=== PATIENT | female | born 1940 | race Caucasian/White ===

== ENCOUNTER 2019-09-15 17:04 | Emergency (ER) | payer OTHER ==
[2019-09-15 17:11] VITALS: BP 142/76; PULSE 79; TEMP 97; BMI 21.9
--- NOTE | 2019-09-15 17:13 | PDOC ---
Rapid Medical Evaluation Chief Complaint: Nausea Time Seen by Provider: 09/15/19 17:06 Medical Evaluation: 09/15/19 17:08 I have performed a brief in-person evaluation of this patient. The patient presents with a chief complaint of: Here for worsening anxiety and also reports nausea. On klonopin QID but finds herself taking more frequent doses due to 'everything going on". No SI or HI and states "I'm afraid of dying". F/u with [facility], Natasha Villanueva Pertinent physical exam findings:appears anxious, stable I have ordered the following:ekg/labs The patient will proceed to the ED for further evaluation. Discharge Disposition - Diagnosis Anxiety - Referrals - Patient Instructions - Post Discharge Activity
[2019-09-15 18:50] LABS: BASO % 0.6 % (0-2.0); EOS % 3.4 % (0-4.5); HEMATOCRIT 42.7 % (32.4-45.2); HEMOGLOBIN 14.3 GM/dL (10.7-15.3); MCH 31.6 pg (25.7-33.7); MCHC 33.4 g/dl (32.0-36.0); MEAN CELL VOLUME 94.5 fl (80-96); MEAN PLT VOLUME 7.7 fl (7.5-11.1); MONO % 10.4 % (3.8-10.2); NEUT % 49.6 % (42.8-82.8); PLATELET COUNT 272 K/MM3 (134-434); RBC 4.52 M/mm3 (3.60-5.2); RDW 13.3 % (11.6-15.6); WHITE BLOOD COUNT 6.8 K/mm3 (4.0-10.0)
--- NOTE | 2019-09-15 18:58 | PDOC ---
History of Present Illness - General Chief Complaint: Nausea Stated Complaint: OVERDOSE Time Seen by Provider: 09/15/19 17:06 History Source: Patient Exam Limitations: No Limitations - History of Present Illness Travel History: No Initial Comments: 09/15/19 18:52 HISTORY OF PRESENT ILLNESS: 79-year-old woman with extensive psychiatric history dating back 60+ years presents emergency department for evaluation of "I feel really anxious and overwhelmed." Patient reports she has been prescribed Klonopin which supposed to take 4 times daily patient has been taking it twice daily over the past 8 days (confirmed by EMS). Patient was in touch with her health information clerk who was concerned that the patient's anxiety level and called 911 to have patient come to the emergency department. Upon arrival patient reports she feels mildly nauseated and reports feeling overwhelmed regarding multiple life stressors including who is bedbound. Patient is concerned about COVID-19 and reports she does not leave her house or have any interaction other than her and the occasional psychological operations tele-visit. She denies chest pain, shortness of breath, dizziness, headaches, vomiting, diarrhea, anthony pain. No recent travel or sick contacts. PAST MEDICAL HISTORY: Denies past medical history SURGICAL HISTORY: Denies ALLERGIES: No known drug allergies REVIEW OF SYSTEMS General/Constitutional: Denies fever or chills. Denies weakness, weight change. HEENT: Denies change in vision. Denies ear pain or discharge. Denies sore throat. Cardiovascular: Denies chest pain or shortness of breath. Respiratory: Denies cough, wheezing, or hemoptysis. Gastrointestinal: See HPI Genitourinary: Denies dysuria, frequency, or change in urination. Musculoskeletal: Denies joint or muscle swelling or pain. Denies neck or back pain. Skin and breasts: Denies rash or easy bruising. Neurologic: Denies headache, vertigo, loss of consciousness, or loss of sensation. Psychiatric: See HPI Endocrine: Denies increased thirst. Denies abnormal weight change. Hematologic/Lymphatic: Denies anemia, easy bleeding, or history of blood clots. Allergic/Immunologic: Denies hives or skin allergy. Denies latex allergy. PHYSICAL EXAM General Appearance: Well-appearing, appropriately dressed. No apparent distress, no intoxication. HEENT: EOMI, PERRLA, normal ENT inspection, normal voice, TMs normal, pharynx normal. No conjunctival pallor. No photophobia, scleral icterus. Neck: Supple. Trachea midline. No tenderness, rigidity, carotid bruit, stridor, lymphadenopathy, or thyromegaly. Respiratory/Chest: Lungs CTAB. No shortness of breath, chest tenderness, respiratory distress, accessory muscle use. No crackles, rales, rhonchi, stridor, wheezing, dullness Cardiovascular: RRR. S1, S2. No JVD, murmur, bradycardia, tachycardia. Vascular Pulses: Dorsalis-Pedis (R): 2+, Dorsalis-Pedis (L): 2+ Gastrointestinal/Abdominal: Normal bowel sounds. Abdomen soft, non-distended. No tenderness or rebound tenderness. No organomegaly, pulsatile mass, guarding, hernia, hepatomegaly, splenomegaly. Lymphatic: No adenopathy, tenderness. Musculoskeletal/Extremities: Normal inspection. FROM of all extremities, normal capillary refill. Pelvis Stable. No CVA tenderness. No tenderness to extremities, pedal edema, swelling, erythema or deformity. Integumentary: Appropriate color, dry, warm. No cyanosis, erythema, jaundice or rash Neurologic: pouch maker II-XII intact. Fully oriented, alert. Appropriate mood/affect. Motor strength 5/5. No appreciable EOM palsy, facial droop or sensory deficit. 09/15/19 18:55 09/15/19 19:49 Past History - Medical History Allergies/Adverse Reactions: Allergies Allergy/AdvReac Type Severity Reaction Status Date / Time No Known Allergies Allergy Verified 09/15/19 17:11 Home Medications: Ambulatory Orders NK [No Known Home Medication] 09/15/19 COPD: No Psychiatric Problems: Yes (anxiety and depression) - Psycho-Social/Smoking History Smoking History: Never smoked - Substance Abuse Hx (Audit-C & DAST Scrn) How often the patient has a drink containing alcohol: Never Score: In Men: 4 or > Positive; In Women: 3 or > Positive: 0 Screen Result (Pos requires Nsg. Audit-10AR): Negative *Physical Exam - Vital Signs Last Vital Signs Temp Pulse Resp BP Pulse Ox 97 F L 79 18 142/76 99 09/15/19 17:07 09/15/19 17:07 09/15/19 17:07 09/15/19 17:07 09/15/19 18:31 ED Treatment Course - LABORATORY CBC & Chemistry Diagram: 09/15/19 18:00 09/15/19 18:00 Medical Decision Making - Medical Decision Making 09/15/19 18:58 A/P: 79-year-old woman here for nausea and increased life stressors Physical exam is unremarkable. Symptoms are likely due to patient's known anxiety given subtherapeutic use of antianxiety medication. As patient is 79 years old I will perform a cardiac work-up to evaluate that the symptoms are not physiologic. 09/15/19 19:49 Laboratory Tests 09/15/19 09/15/19 18:00 18:00 WBC 6.8 RBC 4.52 Hgb 14.3 Hct 42.7 MCV 94.5 MCH 31.6 MCHC 33.4 RDW 13.3 Plt Count 272 MPV 7.7 Absolute Neuts (auto) 3.4 Neutrophils % 49.6 Lymphocytes % 36.0 Monocytes % 10.4 H Eosinophils % 3.4 Basophils % 0.6 Nucleated RBC % 0 Sodium 140 Potassium 4.7 Chloride 105 Carbon Dioxide 29 Anion Gap 6 L BUN 13.8 Creatinine 0.9 Est GFR (CKD-EPI)AfAm 71.48 Est GFR (CKD-EPI)NonAf 61.67 Random Glucose 96 Calcium 9.4 Total Bilirubin 0.2 AST 17 ALT 19 Alkaline Phosphatase 86 Creatine Kinase 73 Troponin I < 0.02 Total Protein 7.4 Albumin 3.8 EKG sinus rhythm with rate of 65. Normal intervals with a QTC 420 ms. Normal axis. No acute ischemic changes present. Chest x-ray is read by me: Lung vides clear. Angle sharp. Cardiac silhouette is within normal limits. On the lateral view there appears to be bowel in the chest cavity-? Hiatal hernia. Severe kyphosis noted. Zofran 4 mg sublingual Reassess 09/15/19 19:55 Patient reports complete resolution of symptoms and is tolerating p.o.'s without difficulty. Discharge home I discussed the physical exam findings, ancillary test results and final diagnoses with the patient. I answered all of the patient's questions. The patient was satisfied with the care received and felt comfortable with the discharge plan and treatment plan. The patient will call their primary care physician within 24 hours to arrange follow-up and will return to the Emergency Department with any new, persistent or worsening symptoms. Portions of this note have been documented using voice recognition software. As a result, errors may occur in the core worker process. Effort has been made to correct all grammatical and core worker error, but some may have been missed which may produce sporadic inaccurate core worker or nonsensical phrases. 09/15/19 19:56 09/15/19 20:04 Discharge - Discharge Information Problems reviewed: Yes Clinical Impression/Diagnosis: Nausea alone Condition: Fair Disposition: HOME - Admission No - Follow up/Referral Referrals: Charly Currie [Primary Care Provider] - Dickson Hunter MD [Staff Physician] - - Patient Discharge Instructions Additional Instructions: On your x-ray it appears you may have some bowel in the chest cavity. This requires follow-up with GI specialist. A number has been provided for you for continued evaluation. It is important that you follow-up with your primary doctor for reevaluation. It is important that you follow-up with your health information clerk for continued evaluation and possible adjustment in your medication regimen. Take your medications as previously prescribed. Return to the emergency department for any new or worsening symptoms. Thank you very much for choosing us to provide your emergent healthcare needs. - Post Discharge Activity
[2019-09-15 19:09] LABS: ALBUMIN 3.8 g/dl (3.4-5.0); ALK PHOS 86 U/L (45-117); ANION GAP 6 MMOL/L (8-16); BILIRUBIN,TOTAL 0.2 mg/dL (0.2-1); BLOOD UREA NITROGEN 13.8 mg/dL (7-18); CALCIUM 9.4 mg/dL (8.5-10.1); CHLORIDE 105 mmol/L (98-107); CO2 29 mmol/L (21-32); CREATININE 0.9 mg/dL (0.55-1.3); GLUCOSE,RANDOM 96 mg/dL (74-106); POTASSIUM 4.7 mmol/L (3.5-5.1); SGOT/AST 17 U/L (15-37); SGPT/ALT 19 U/L (13-61); SODIUM 140 mmol/L (136-145); TOT PROT 7.4 g/dl (6.4-8.2)
[2019-09-15] MEDS ORDERED: ONDANSETRON *ODT* 4 MG TABLET SL ONE (19:38)
--- NOTE | 2019-09-16 12:13 | EKG ---
Test Reason : Blood Pressure : / mmHG Vent. Rate : 065 BPM Atrial Rate : 065 BPM P-R Int : 136 ms QRS Dur : 082 ms QT Int : 404 ms P-R-T Axes : 057 005 007 degrees QTc Int : 420 ms NORMAL SINUS RHYTHM NORMAL ECG NO PREVIOUS ECGS AVAILABLE Confirmed by SAM PEREZ MD ([id number]) on 09/16/2019 12:13:27 PM Referred By: Confirmed By:SAM PEREZ MD
== END 2019-09-15 21:20 | disposition home or self-care (01) ==
LOC: JER 17:04
DX: R11.0 Nausea (principal); T50.901A Poisoning by unspecified drugs, medicaments and biological substances, accidental (unintentional), initial encounter
CPT/HCPCS: 36415; 71046-TC-FY; 80053; 82550; 84484; 85025; 93005; 93010; 99285-25

== ENCOUNTER 2024-10-23 20:59 | Emergency (ER) | payer OTHER ==
[2024-10-23 21:10] VITALS: BMI 23.8
[2024-10-23 22:54] LABS: ABSOLUTE IMMATURE GRANULOCYTES 0.12 x10^3/uL (0.0-0.031); BASOPHILS # 0.03 x10^3/uL (0.01-0.08); EOSINOPHIL % 2.0 % (0.7-5.8); EOSINOPHILS # 0.25 x10^3/uL (0.04-0.36); MCHC 31.9 g/dl (32.2-35.5); MEAN CELL VOLUME 96.6 fl (79.4-94.8); MEAN PLT VOLUME 8.7 fl (9.4-12.3); MONOCYTE # 1.56 x10^3/uL (0.24-0.86); MONOCYTE % 12.8 % (4.7-12.5); RDW 13.4 % (12.5-17.0)
[2024-10-23 23:10] LABS: GLUCOSE,RANDOM 93.0 mg/dL (74-106); TOT PROT 6.7 g/dl (6.4-8.2)
[2024-10-23 23:11] LABS: CO2 28.0 mmol/L (21-32)
[2024-10-23 23:13] LABS: ALK PHOS 93.0 U/L (40-150)
[2024-10-23 23:15] LABS: SGOT/AST 15.0 U/L (5-34); SGPT/ALT 19.0 U/L (0-55)
[2024-10-23 23:16] LABS: CREATININE 0.93 mg/dL (0.55-1.3)
[2024-10-23] MEDS ORDERED: ACETAMINOPHEN INJECTION 100 ML ONE (23:42)
[2024-10-23] MEDS ORDERED: LIDOCAINE 5% TOPICAL PATCH ONE (23:43)
[2024-10-23] MEDS: SODIUM CHLORIDE 0.9% 500 ML INFUS.BAG IV ONE (23:58)
[2024-10-24 01:02] VITALS: BP 167/69; PULSE 77; RESP 17; TEMP 97.5
[2024-10-24] MEDS: SODIUM CHLORIDE 0.9% 500 ML INFUS.BAG IV ONE (01:32)
[2024-10-24] MEDS: ACETAMINOPHEN 1000 MG/100 ML BAG IVPB ONE (01:42)
[2024-10-24] MEDS: LIDOCAINE PATCH REMOVAL MC SCH (01:43)
[2024-10-24] MEDS: LIDOCAINE 4% PATCH TP ONE (01:43)
[2024-10-24 01:52] LABS: EPI CELLS 2 /uL (0-25.1); HYALINE CASTS 3 /uL (0-3.1); URINE APPEARANCE TURBID; URINE BILIRUBIN NEGATIVE (NEGATIVE); URINE COLOR YELLOW; URINE GLUCOSE (UA) NEGATIVE (NEGATIVE); URINE KETONE NEGATIVE (NEGATIVE); URINE LEUK ESTERASE 3+ (NEGATIVE); URINE NITRITE POSITIVE (NEGATIVE); URINE PROTEIN 1+ (NEGATIVE); URINE UROBILINOGEN 0.2 mg/dL (0.2-1.0); URINE WBC 7847 /uL (0-25.8)
== END 2024-10-24 03:08 | disposition home or self-care (01) ==
LOC: JER 20:59
PROC: 0T9B70Z Drainage of Bladder with Drainage Device, Via Natural or Artificial Opening (ICD-10-PCS; principal; 2024-10-24)
DX: N39.0 Urinary tract infection, site not specified (principal); R53.83 Other fatigue; R10.30 Lower abdominal pain, unspecified; R33.9 Retention of urine, unspecified
CPT/HCPCS: 36415; 71045-TC-FY; 80053; 81003; 83735; 85025; 87086; 87637-QW; 99284-25

== ENCOUNTER 2024-12-25 17:56 | Emergency (ER) | payer OTHER ==
[2024-12-25 18:05] VITALS: TEMP 98.2; BMI 20.9
[2024-12-25 20:47] LABS: MCHC 33.0 g/dl (32.2-35.5); MEAN CELL VOLUME 95.1 fl (79.4-94.8); MEAN PLT VOLUME 8.9 fl (9.4-12.3); RDW 13.4 % (12.5-17.0)
[2024-12-25 20:51] LABS: INR 1.01 (0.83-1.09); PROTHROMBIN TIME (PATIENT) 11.1 SEC (9.7-13.0)
[2024-12-25 20:53] LABS: ACTIVATED PTT 26.6 SECONDS (25.2-36.5)
[2024-12-25 21:01] LABS: GLUCOSE,RANDOM 88.0 mg/dL (74-106); TOT PROT 6.2 g/dl (6.4-8.2)
[2024-12-25 21:02] LABS: CO2 22.0 mmol/L (21-32)
[2024-12-25 21:04] LABS: ALK PHOS 89.0 U/L (40-150)
[2024-12-25 21:07] LABS: CREATININE 1.03 mg/dL (0.55-1.3); SGOT/AST 18.0 U/L (5-34); SGPT/ALT 8.0 U/L (0-55)
[2024-12-25] MEDS ORDERED: ACETAMINOPHEN INJECTION 100 ML ONE (22:05)
[2024-12-25] MEDS: ACETAMINOPHEN 1000 MG/100 ML BAG IVPB ONE (22:21)
[2024-12-26 00:44] VITALS: BP 127/78; PULSE 80; RESP 21
== END 2024-12-26 01:01 | disposition home or self-care (01) ==
LOC: JER 17:56
PROC: 3E033NZ Introduction of Analgesics, Hypnotics, Sedatives into Peripheral Vein, Percutaneous Approach (ICD-10-PCS; principal; 2024-12-25)
DX: S00.11XA Contusion of right eyelid and periocular area, initial encounter (principal); W01.198A Fall on same level from slipping, tripping and stumbling with subsequent striking against other object, initial encounter
CPT/HCPCS: 36415; 70450-TC; 71045-TC-FY; 72125-TC; 72170-TC-FY; 73502-TC-LT-FY; 80053; 83735; 84484; 85027; 85610; 85730; 93005; 93010; 99285-25